=== PATIENT | male | born 1965 | race Caucasian/White ===

== ENCOUNTER 2019-03-22 08:30 | Emergency (ER) | payer BC ==
[~2019-03-22] VITALS: Ht 175.3 cm; Wt 110.0 kg
[2019-03-22] MEDS ORDERED: LISI-186 PO (08:48)
[2019-03-22] MEDS ORDERED: METF-815 PO (08:48)
[2019-03-22] MEDS ORDERED: GLIP10TA10 PO (08:48)
[2019-03-22] MEDS ORDERED: METO25TA6 PO (08:48)
[2019-03-22] MEDS ORDERED: PRAV10TA35 PO (08:49)
[2019-03-22] MEDS ORDERED: KETOROLAC 30MG/ML VIAL IV STA (09:02)
[2019-03-22] MEDS ORDERED: SODIUM CHLORIDE 0.9% 1,000 ML IV ONE (09:02)
[2019-03-22 09:29] LABS: BASOPHILS % 0.6 % (0.0-2.0); EOSINOPHILS % 2.1 % (0.0-5.0); HEMATOCRIT. 45.2 % (36.0-48.0); LYMPHOCYTES % 23.4 % (20.0-50.0); MEAN CORPUSCULAR HEMOGLOBIN 31.8 pg (28.0-32.0); MONOCYTES % 8.5 % (2.0-8.0); NEUTROPHILS % 65.4 % (40.0-76.0); PLATELET 145 x1000/uL (130-400); RED BLOOD CELL COUNT 5.02 mill/uL (4.2-5.4); RED CELL DISTRIBUTION WIDTH 13.4 % (11.6-14.6)
[2019-03-22] MEDS ORDERED: LOSARTAN POTASSIUM 25 MG TABLET PO ONE (09:30)
[2019-03-22] MEDS ORDERED: METOPROLOL TARTRATE 50MG TABLET PO ONE (09:30)
[2019-03-22 09:35] LABS: CHLORIDE 109 mEq/L (98-107); PROTHROMBIN TIME 10.1 sec (9.6-11.0)
[2019-03-22 10:37] LABS: CLARITY URINE CLOUDY (CLEAR); COLOR URINE ORANGE (YELLOW); KETONES URINE NEGATIVE (NEGATIVE); LEUKOCYTE ESTERASE URINE TRACE (NEGATIVE); NITRITE URINE NEGATIVE (NEGATIVE); OCCULT BLOOD URINE 3+ (NEGATIVE); PROTEIN URINE 1+ (NEGATIVE); SPECIFIC GRAVITY URINE 1.013 (1.005-1.030); UROBILINOGEN URINE 0.2 E.U./dL (0.2-1.0)
[2019-03-22] MEDS ORDERED: ENALAPRIL 2.5MG/2ML VIAL 2ML IV ONE (12:00)
[2019-03-22] MEDS ORDERED: CEFTRIAXONE 1 G PREMIX 50 ML IV ONE (12:00)
[2019-03-22] MEDS ORDERED: ENALAPRIL 1.25MG/ML VIAL 1ML IV SCH (12:00)
[2019-03-22] MEDS ORDERED: HYDRALAZINE 20MG/ML VIAL IV ONE (13:45)
[2019-03-22 14:59] VITALS: BP 183/110
[2019-03-22] MEDS ORDERED: AMLODIPINE 10MG TABLET PO ONE (15:00)
== END 2019-03-22 15:05 | disposition home or self-care (01) ==
LOC: ER 08:30 → EDSEX 08:30 → ER 15:05
DX: N20.0 Calculus of kidney (principal); N13.9 Obstructive and reflux uropathy, unspecified; R10.9 Unspecified abdominal pain; R31.9 Hematuria, unspecified; E11.9 Type 2 diabetes mellitus without complications; E78.00 Pure hypercholesterolemia, unspecified; I10 Essential (primary) hypertension; Z98.890 Other specified postprocedural states; Z87.891 Personal history of nicotine dependence; Z79.899 Other long term (current) drug therapy
CPT/HCPCS: 36415; 74176; 80053; 81003; 83690; 85025; 85610; 86850; 86900; 86901; 87086; 96365; 96375; 99284; J0360; J0696; J1885; J3490; J7030

== ENCOUNTER 2019-11-19 04:31 | Emergency (ER) | payer BC ==
[~2019-11-19] VITALS: Ht 175.3 cm; Wt 104.0 kg
[~2019-11-19 04:31] MED LIST: GLIP10TA10 PO; LISI-186 PO; METF-815 PO; METO25TA6 PO; PRAV10TA35 PO
[2019-11-19] MEDS ORDERED: ONDANSETRON HCL 4MG/2ML INJ IV STA (06:23)
[2019-11-19 06:49] LABS: CLARITY URINE CLEAR (CLEAR); COLOR URINE YELLOW (YELLOW); KETONES URINE NEGATIVE (NEGATIVE); LEUKOCYTE ESTERASE URINE TRACE (NEGATIVE); NITRITE URINE NEGATIVE (NEGATIVE); OCCULT BLOOD URINE 1+ (NEGATIVE); PROTEIN URINE 2+ (NEGATIVE); SPECIFIC GRAVITY URINE 1.022 (1.005-1.030)
[2019-11-19 06:52] LABS: BASOPHILS % 0.6 % (0.0-2.0); HEMATOCRIT. 45.2 % (42.0-52.0); HEMOGLOBIN. 16.3 g/dL (14.0-18.0); LYMPHOCYTES % 32.5 % (20.0-50.0); MEAN CORPUSCULAR HEMOGLOBIN 32.1 pg (28.0-32.0); MEAN CORPUSCULAR VOLUME 89.3 fL (80.0-94.0); MEAN PLATELET VOLUME 10.3 fl (7.4-10.4); MONOCYTES % 7.1 % (2.0-8.0); NEUTROPHILS % 57.8 % (40.0-76.0); PLATELET 135 x1000/uL (130-400); RED BLOOD CELL COUNT 5.06 mill/uL (4.7-6.1); RED CELL DISTRIBUTION WIDTH 14.3 % (11.6-14.6)
[2019-11-19 06:57] LABS: CHLORIDE 109 mEq/L (98-107)
[2019-11-19 07:06] LABS: PROTHROMBIN TIME 10.8 sec (9.6-11.0)
[2019-11-19] MEDS ORDERED: HYDRALAZINE 20MG/ML VIAL IV ONE ×2 (08:15→11:15)
[2019-11-19 12:13] VITALS: BP 153/93
== END 2019-11-19 12:27 | disposition short-term general hospital (02) ==
LOC: ER 04:31
DX: G43.A1 Cyclical vomiting, in migraine, intractable (principal); E78.00 Pure hypercholesterolemia, unspecified; I10 Essential (primary) hypertension; E11.9 Type 2 diabetes mellitus without complications; Z79.899 Other long term (current) drug therapy
CPT/HCPCS: 36415; 74176; 80053; 81003; 82962; 83690; 85025; 85610; 96374; 96375; 96376; 99285; J0360; J2405